=== PATIENT | male | born 1985 | race Caucasian/White ===

== ENCOUNTER → 2019-08-07 | Outpatient (CLI) | payer OTHER ==
--- NOTE | 2019-08-07 14:13 | REP ---
INDICATION: Low back pain TECHNIQUE: Unenhanced axial CT images of the lumbar spine were obtained with sagittal and coronal reconstructions. FINDINGS: There is minimal levoscoliosis with the convexity centered at L2/L3. Very minimal retrolisthesis of L4 on L5 is present. There is no acute fracture, subluxation or dislocation. No lytic or blastic lesions are present. The paraspinal soft tissues are unremarkable. Disc space narrowing is present at L4/L5. There is a broad-based right paracentral disc protrusion at L4/L5 with extension into the neural foramen. IMPRESSION: Right L4/L5 disc herniation with at least moderate right recess and neural foraminal narrowing. Electronically Signed by Salvatore Karimi DO 08/09/2019 08:39 A
== END ==
LOC: M RAD 11:01
PROVIDERS: ATTEND Psychiatry & Neurology Neurology
DX: M51.26 Other intervertebral disc displacement, lumbar region (principal)

== ENCOUNTER → 2020-09-01 | Outpatient (CLI) | payer OTHER ==
--- NOTE | 2020-09-14 16:20 | REP ---
INDICATION: BONE LESION; LT FEMUR. Bone lesion in the left distal femoral shaft, [facility] orthopedics requesting CT for further evaluation. COMPARISON: Report is delayed pending retrieval of outside prior radiographs dated February 05, 2020.. TECHNIQUE: Helical scanning is acquired and 1 mm axial images re-formatted. Coronal and sagittal MPR images are provided. 3D surface rendered images are generated. The FINDINGS: A focal densely sclerotic endosteal bony lesion is seen in the distal femoral diaphysis. The lesion measures 3.5 cm in craniocaudal span by 2.0 x 1.8 cm in transverse dimension. There is no evidence of endosteal scalloping, periosteal reaction, or bone expansion. The lesion has a sharp zone of demarcation. No soft tissue component. It is densely calcified except for an irregular channel in its midst. No other bone lesion is seen. Hip joint space is preserved and normally aligned. Sarah osseous soft tissues are unremarkable except for the presence of a small focal calcification in the proximal hamstring musculature. IMPRESSION: 3.5 cm sharply defined benign appearing sclerotic diaphyseal lesion in the distal femur. Possibilities include osteoma, atypical enchondroma, melorheostosis, giant bone island. It does not appear to have aggressive features. <Electronically signed by Otoniel Aguayo > 09/14/20 [id number]
== END ==
LOC: M PLAIMG 13:44
PROVIDERS: ATTEND Nurse Practitioner Primary Care
DX: M89.9 Disorder of bone, unspecified (principal)

== ENCOUNTER → 2020-09-02 | Outpatient (CLI) | payer OTHER ==
--- NOTE | 2020-09-04 16:58 | REPVR ---
PROCEDURE INFORMATION: Exam: MR Head Without Contrast Exam date and time: 09/02/2020 2:51 PM Age: 34 years old Clinical indication: Pain; Headache not specified TECHNIQUE: Imaging protocol: MR of the head without contrast. COMPARISON: No relevant prior studies available. FINDINGS: Brain: Few very small scattered nonspecific T2/FLAIR hyperintensities of the deep subcortical white matter. No intracranial hemorrhage or extra-axial fluid collection. No evidence of mass effect or midline shift. No restricted diffusion to suggest acute infarct. Cerebral ventricles: No ventriculomegaly. Bones/joints: Unremarkable. Paranasal sinuses: Normal as visualized. No acute sinusitis. Mastoid air cells: No mastoid effusion. Orbital cavity: Unremarkable. Soft tissues: Unremarkable. IMPRESSION: Few very small scattered nonspecific T2/FLAIR hyperintensities of the deep subcortical white matter, of unknown clinical significance. Differential includes but is not limited to sequela of chronic small vessel ischemic change (though this would be greater than expected for patient's age), demyelinating disease, migraine, or other chronic inflammatory white matter process. Follow-up at the discretion of neurology. Otherwise, no acute intracranial findings. Electronically signed by: Cain Thorpe On 09/04/2020 16:58:06 PM
== END ==
LOC: M PLAIMG 14:18
PROVIDERS: ATTEND Physician Assistant
DX: R51.9 Headache, unspecified (principal); R90.82 White matter disease, unspecified